=== PATIENT | female | born 1990 | race Caucasian/White ===

== ENCOUNTER 2016-11-05 15:05 | Outpatient (CLI) | payer OTHER ==
[~2016-11-05 15:05] MED LIST: LEXAPRO 10MG10 MG PO; MOTRIN 800800 MG/TAB PO; NORCO 325 MG-51 TAB PO; PERCOCET 325 MG1 TA2 PO; PRENATAL1 TA1 PO; TYLENOL EXTRA500 M1 PO; ZOFRAN ODT4 MG PO
[2016-11-05] MEDS ORDERED: PRENATAL 191 CTB RC (15:29)
[2016-11-05 16:02] LABS: PH 7 (5-8); URINE APPEARANCE Clear; URINE BILIRUBIN Negative (NEGATIVE); URINE BLOOD Negative (NEGATIVE); URINE COLOR Straw; URINE GLUCOSE Negative (NEGATIVE); URINE KETONE Negative (NEGATIVE); URINE UROBILINOGEN Negative (NEGATIVE)
[2016-11-05 16:10] LABS: URINE BACTERIA Occasional /hpf; URINE RBC None Seen /hpf
== END 2016-11-05 16:30 | disposition home or self-care (01) ==
LOC: LDRO 15:05
PROVIDERS: Student in an Organized Health Care Education/Training Program
DX: O26.899 Other specified pregnancy related conditions, unspecified trimester (principal); Z3A.00 Weeks of gestation of pregnancy not specified

== ENCOUNTER 2017-02-10 01:12 | Inpatient (IN) | payer OTHER ==
[2017-02-10] VITALS (20 sets, daily range): BP systolic 102–138; BP diastolic 39–82; PULSE 55–89; TEMP 97.8–97.9
[~2017-02-10] VITALS: Ht 167.6 cm; Wt 84.5 kg
[~2017-02-10 01:12] MED LIST changes: +PRENATAL 191 CTB RC
[2017-02-10] MEDS ORDERED: B-12 500 MCG (01:39)
[2017-02-10] MEDS ORDERED: EZFE 200200 MG PO (01:40)
[2017-02-10] MEDS ORDERED: NATURAL IRON65 MG (02:58)
[2017-02-10 05:02] LABS: BASO % 0.4 % (0.0-2.0); EOS # 0.2 (0.0-0.7); EOS % 1.6 % (0-4.0); GRAN # 7.4 (1.4-6.5); GRAN % 70.9 % (42.2-75.2); HEMOGLOBIN 12.7 g/dl (12.5-16.0); LYMPH % 19.6 % (20.0-51.0); MEAN CELL VOLUME 94 fl (80.0-100.0); MEAN CORPUSCULAR HEMOGLOBIN 33 pg (27.0-31.0); MEAN CORPUSCULAR HGB CONC 35 g/dl (33.0-37.0); MEAN PLATELET VOLUME 11.3 fl (7.4-10.4); MONO # 0.7 (0.1-0.6); MONO % 6.5 % (1.7-9.3); PLATELET COUNT 218 K/mm3 (130-400); RED BLOOD COUNT 3.88 M/mm3 (4.10-5.30); REDCELL DISTRIBUTION WIDTH-CV 12.8 % (11.5-14.5); WHITE BLOOD COUNT 10.4 K/mm3 (4.8-10.8)
[2017-02-10 05:05] LABS: HEMATOCRIT 36.3 % (37.0-47.0)
[2017-02-11 00:01] VITALS: BP 112/71; PULSE 78; TEMP 97.3
[2017-02-11 07:07] VITALS: BP 103/64; PULSE 86; TEMP 97.3
[2017-02-11 07:53] LABS: HEMATOCRIT 34.6 % (37.0-47.0); HEMOGLOBIN 11.5 g/dl (12.5-16.0)
[2017-02-11 16:36] VITALS: BP 118/67; PULSE 71; TEMP 98.4
[2017-02-11 20:30] VITALS: BP 123/73; PULSE 76; TEMP 98.3
[2017-02-12 07:30] VITALS: BP 129/75; PULSE 89; TEMP 98.3
[2017-02-12] MEDS ORDERED: MOTRIN 600600 MG/TAB PO (09:01)
[2017-02-12] MEDS ORDERED: PERCOCET 325 MG1 TA2 PO (09:01)
== END 2017-02-12 14:10 | disposition home or self-care (01) | DRG 766 ==
LOC: LDRO 01:12 → OB 01:15 → LDR 01:15 → OB 09:32
PROVIDERS: Obstetrics & Gynecology
PROC: 10D00Z1 Extraction of Products of Conception, Low, Open Approach (ICD-10-PCS; principal; 2017-02-10)
DX: O34.211 Maternal care for low transverse scar from previous cesarean delivery (principal); N85.8 Other specified noninflammatory disorders of uterus; O69.81X0 Labor and delivery complicated by cord around neck, without compression, not applicable or unspecified; O99.824 Streptococcus B carrier state complicating childbirth; Z3A.38 38 weeks gestation of pregnancy; Z37.0 Single live birth
CPT/HCPCS: J0690; J1885; J2175; J2270; J2370; J2405; J2590; J7120

== ENCOUNTER 2018-11-23 09:52 | Inpatient (IN) | payer OTHER ==
[2018-11-23] VITALS (17 sets, daily range): BP systolic 87–133; BP diastolic 35–82; PULSE 56–81; TEMP 97.5–98
[~2018-11-23] VITALS: Ht 167.6 cm; Wt 89.1 kg
[~2018-11-23 09:52] MED LIST changes: +B-12 500 MCG; +EZFE 200200 MG PO; +MOTRIN 600600 MG/TAB PO; +NATURAL IRON65 MG
--- NOTE | 2018-11-23 10:00 | NUR ---
Presents to labor and delivery for repeat section. Assessment done, questions offered and answered.
[2018-11-23] MEDS ORDERED: NEXIUM 24HR20 M1 PO (10:17)
[2018-11-23] MEDS ORDERED: BONJESTA ER 201 EACH PO (10:17)
--- NOTE | 2018-11-23 10:30 | NUR ---
IV started to left hand x 1 attempt. blood drawn from IV site and then LR infusing without difficulty. Consents signed. Shave and abd prep done at this time. FHR reactive, pt denies feeling any contractions or having any vaginal bleeding or leaking of fluid. 1038:Pre op medications given, see EMAR.
[2018-11-23 10:50] LABS: BASO % 0.3 % (0.0-2.0); EOS # 0.1 (0.0-0.7); EOS % 1.6 % (0-4.0); GRAN # 5.2 (1.4-6.5); GRAN % 69.8 % (42.2-75.2); HEMOGLOBIN 11.9 g/dl (12.5-16.0); LYMPH # 1.5 (1.2-3.4); LYMPH % 20.5 % (20.0-51.0); MEAN CELL VOLUME 92 fl (80.0-100.0); MEAN CORPUSCULAR HEMOGLOBIN 31 pg (27.0-31.0); MEAN CORPUSCULAR HGB CONC 34 g/dl (33.0-37.0); MEAN PLATELET VOLUME 10.6 fl (7.4-10.4); MONO # 0.5 (0.1-0.6); PLATELET COUNT 255 K/mm3 (130-400); RED BLOOD COUNT 3.83 M/mm3 (4.10-5.30); REDCELL DISTRIBUTION WIDTH-CV 13.3 % (11.5-14.5)
[2018-11-23 10:57] LABS: HEMATOCRIT 35.2 % (37.0-47.0)
--- NOTE | 2018-11-23 13:45 | NUR ---
Pt trans to room 213 via bed. Alert and oriented. Fundus firm, bleeding WNL. at bedside. Pt denies any pain or nausea.
--- NOTE | 2018-11-23 17:20 | NUR ---
Pt calls out c/o abd incision "burning". rates pain 9/10. Dr Power called and order received for morphine 5-10mg every 2 hours. 1724:See EMAR. 1755:Ice pack to abd at this time. Pt states pain is better. Rates 4/10.
--- NOTE | 2018-11-23 22:30 | NUR ---
Assumed care at this time.
[2018-11-24 03:46] VITALS: BP 121/66; PULSE 65; TEMP 97.6
[2018-11-24 07:25] VITALS: BP 124/78; PULSE 89; TEMP 98.6
--- NOTE | 2018-11-24 09:05 | NUR ---
Initial visit; Mom thanked [employer] Dispatcher for looking in on her and offering congratulations and God's blessings for the of her son. [employer] Dispatcher thanked family for choosing [facility].
[2018-11-24 10:11] LABS: HEMOGLOBIN 10.9 g/dl (12.5-16.0)
[2018-11-24 10:30] LABS: HEMATOCRIT 33.1 % (37.0-47.0)
[2018-11-24 16:50] VITALS: BP 113/62; PULSE 84; TEMP 97.6
[2018-11-24 18:55] VITALS: BP 122/72; PULSE 84; TEMP 98.4
[2018-11-25 04:00] VITALS: BP 118/72; PULSE 79; TEMP 98.2
[2018-11-25 07:49] VITALS: BP 126/76; PULSE 64
[2018-11-25] MEDS ORDERED: MOTRIN 600600 MG/TAB PO (10:28)
[2018-11-25] MEDS ORDERED: PERCOCET 325 MG1 TA2 PO (10:28)
[2018-11-25 17:09] VITALS: BP 123/76; PULSE 68; TEMP 97.8
[2018-11-25 19:00] VITALS: BP 135/75; PULSE 100; TEMP 97.9
[2018-11-26 08:30] VITALS: BP 124/72; PULSE 74; TEMP 98.3
== END 2018-11-26 11:00 | disposition home or self-care (01) | DRG 788 ==
LOC: OB 09:52 → LDR 13:52 → OB 11-26 11:00
PROVIDERS: ADMIT Obstetrics & Gynecology
PROC: 10D00Z1 Extraction of Products of Conception, Low, Open Approach (ICD-10-PCS; principal; 2018-11-23)
DX: O34.211 Maternal care for low transverse scar from previous cesarean delivery (principal); Z3A.39 39 weeks gestation of pregnancy; Z37.0 Single live birth; O69.81X0 Labor and delivery complicated by cord around neck, without compression, not applicable or unspecified
CPT/HCPCS: J0690; J1885; J2270; J2370; J2405; J2590; J2765; J3010; J7120

== ENCOUNTER 2020-03-23 23:56 | Emergency (ER) | payer SELFPAY ==
[~2020-03-23] VITALS: Ht 167.6 cm; Wt 59.1 kg
[~2020-03-23 23:56] MED LIST changes: +BONJESTA ER 201 EACH PO; +NEXIUM 24HR20 M1 PO
[2020-03-24 00:01] VITALS: TEMP 98.6
[2020-03-24 00:34] LABS: ALBUMIN 4.9 gm/dL (3.5-5.0); BILIRUBIN,TOTAL 0.4 mg/dL (0.0-1.0); CREATININE, serum 0.86 (0.52-1.25); POTASSIUM 3.7 mmol/L (3.4-5.0)
[2020-03-24 03:43] VITALS: BP 121/66; PULSE 100
== END 2020-03-24 03:22 | disposition home or self-care (01) ==
LOC: COL.ER 23:56
PROVIDERS: Emergency Medicine
DX: F10.129 Alcohol abuse with intoxication, unspecified (principal); Y90.9 Presence of alcohol in blood, level not specified
CPT/HCPCS: J2405; J7030

== ENCOUNTER → 2022-04-27 | Outpatient (CLI) | payer BC | LOC: COL.RAD 07:38 | DX: N99.71 Accidental puncture and laceration of a genitourinary system organ or structure during a genitourinary system procedure (principal) | CPT/HCPCS: Q9967 ==

== ENCOUNTER → 2023-04-01 | Outpatient (CLI) | payer BC | LOC: MC.RAD 08:30 | DX: N64.4 Mastodynia (principal) ==